=== PATIENT | male | born 1930 | race Caucasian/White ===

== ENCOUNTER 2019-07-15 06:50 | Inpatient (IN) | payer MEDICARE ==
[2019-07-13 13:53] LABS: BASOPHILS # (AUTO) 0.1 (0.0-0.1); BASOPHILS % 0.5 % (0.0-1.0); EOSINOPHILS # (AUTO) 0.3 (0.0-0.4); EOSINOPHILS % 3.2 % (0.0-6.0); HEMATOCRIT 44.4 % (38.2-49.6); HEMOGLOBIN 15.2 g/dL (14.0-18.0); LYMPHOCYTES # (AUTO) 2.3 (1.0-3.2); LYMPHOCYTES % 23.8 % (18.0-39.1); MEAN CORPUSCULAR HEMOGLOBIN 30.5 pg (28-32); MEAN CORPUSCULAR HGB CONC 34.2 g/dL (31-35); MEAN CORPUSCULAR VOLUME 89.2 fL (81-99); MONOCYTES # (AUTO) 0.6 (0.2-0.8); MONOCYTES % 6.2 % (4.4-11.3); NEUTROPHILS # (AUTO) 6.4 (2.1-6.9); NEUTROPHILS % 65.9 % (38.7-80.0); PLATELET COUNT 159 x10e3/uL (140-360); RED BLOOD COUNT 4.98 x10e6/uL (4.3-5.7); RED CELL DISTRIBUTION WIDTH 13.3 % (11.7-14.4)
--- NOTE | 2019-07-13 14:00 | Diagnostic Imaging Report ---
Chest, PA and lateral. History: Preoperative evaluation for prostate surgery. Comparison: None available. Discussion: The cardiomediastinal silhouette and pulmonary vasculature are within normal limits. The lungs are clear without evidence of consolidation or effusion. There are no acute osseous abnormalities. IMPRESSION: No radiographic evidence of acute cardiopulmonary abnormality. Signed by: Kedar Sears MD on 07/13/2019 1:57 PM
[2019-07-13 14:11] LABS: ANION GAP 12.4 mmol/L (8-16); BLOOD UREA NITROGEN 12 mg/dL (7-26); BUN/CREATININE RATIO 14 (6-25); CALCIUM 9.2 mg/dL (8.4-10.2); CARBON DIOXIDE 27 mmol/L (22-29); CHLORIDE 105 mmol/L (98-107); CREATININE, SERUM 0.88 mg/dL (0.72-1.25); EST GLOMERULAR FILTRATION RATE > 60 ML/MIN (60-); GLUCOSE 84 mg/dL (74-118); POTASSIUM 4.4 mmol/L (3.5-5.1); SODIUM 140 mmol/L (136-145)
[~2019-07-15] VITALS: Ht 167.6 cm; Wt 74.8 kg
[2019-07-15] MEDS: D5.45%NS/KCL 20MEQ 1,000 ML IV SCH ×2 (03:05→14:30)
[~2019-07-15 06:50] MED LIST: ARICEPT5 MG PO; BYSTOLIC10 MG PO; FLOMAX0.4 MG PO
--- OUTSIDE RECORDS SUMMARY | 2019-07-15 06:52 | XMS REPORT ---
Author Author [facility] Address Unknown Phone Unavailable Care Team Providers Care Sampler Tester Name Role Phone DENI GARNER Unavailable Unavailable Problems This patient has no known problems. Allergies, Adverse Reactions, Alerts This patient has no known allergies or adverse reactions. Medications This patient has no known medications. Results Test Description Test Time Test Comments Text Results Atomic Results Result Comments CHEST 2 VIEWS 2019-07-13 13:57:00 [facility] [address] [address] Patient Name: JUAN PABLO JONES MR #: [id number] : 1930 Age/Sex: 88/M Req #: [id number] [facility] Physician: Ordered by: DENI GARNER MD Report #: [id number] Location: OR Room/Bed: Procedure: [id number] DX/CHEST 2 VIEWS Exam Date: 07/13/19 Exam Time: 1350 REPORT STATUS: Signed Chest, PA and lateral. History: Preoperative evaluation for prostate surgery. Comparison: None available. Discussion: The cardiomediastinal silhouette and pulmonary vasculature are within normal limits. The lungs are clear without evidence of consolidation or effusion. There are no acute osseous abnormalities. IMPRESSION: No radiographic evidence of acute cardiopulmonary abnormality. Signed by: Kedar Richardson MD on 07/13/2019 1:57 PM Dictated By: KEDAR RIHCARDSON MD [id number] Transcribed By: KALLIE on 07/13/19 135 COPY TO: DENI GARNER MD
[2019-07-15] MEDS ORDERED: SODIUM CHLORIDE 0.9% 1000ML 1,000 ML ONE (08:16)
[2019-07-15] MEDS ORDERED: GENTAMICIN 80MG/NS 100 ML 200 ML IV ONE (08:16)
[2019-07-15] MEDS ORDERED: PIPER-TAZ 3.375 GM 50 ML ONE (08:16)
[2019-07-15] MEDS ORDERED: IOPAMIDOL 610MG/1ML 300 MG/ML VIAL IV ONE (08:43)
[2019-07-15] MEDS ORDERED: B&O 60MG R/S 60 MG SUPP PR ONE (08:43)
[2019-07-15] MEDS ORDERED: B&O 60MG R/S 60 MG SUPP PR PRN (11:00)
[2019-07-15] MEDS ORDERED: ACETAMINOPHEN/CODEINE 300MG - 30MG TAB PO PRN (11:00)
[2019-07-15] MEDS ORDERED: DIPHENHYDRAMINE HCL 25 MG CAP PO PRN (11:00)
[2019-07-15] MEDS ORDERED: ONDANSETRON HCL INJ 2MG/ML 2ML 2 MG/ML VIAL IV PRN (11:00)
[2019-07-15 11:44] LABS: BASOPHILS % 0.4 % (0.0-1.0); EOSINOPHILS # (AUTO) 0.1 (0.0-0.4); EOSINOPHILS % 1.2 % (0.0-6.0); HEMATOCRIT 43.3 % (38.2-49.6); HEMOGLOBIN 14.9 g/dL (14.0-18.0); LYMPHOCYTES # (AUTO) 1.2 (1.0-3.2); LYMPHOCYTES % 12.6 % (18.0-39.1); MEAN CORPUSCULAR HEMOGLOBIN 30.5 pg (28-32); MEAN CORPUSCULAR HGB CONC 34.4 g/dL (31-35); MEAN CORPUSCULAR VOLUME 88.7 fL (81-99); MONOCYTES # (AUTO) 0.2 (0.2-0.8); NEUTROPHILS # (AUTO) 7.7 (2.1-6.9); NEUTROPHILS % 83.5 % (38.7-80.0); PLATELET COUNT 132 x10e3/uL (140-360); RED BLOOD COUNT 4.88 x10e6/uL (4.3-5.7); RED CELL DISTRIBUTION WIDTH 13.3 % (11.7-14.4)
[2019-07-15 11:58] LABS: BLOOD UREA NITROGEN 10 mg/dL (7-26); BUN/CREATININE RATIO 12 (6-25); CALCIUM 7.9 mg/dL (8.4-10.2); CARBON DIOXIDE 23 mmol/L (22-29); CHLORIDE 110 mmol/L (98-107); CREATININE, SERUM 0.82 mg/dL (0.72-1.25); EST GLOMERULAR FILTRATION RATE > 60 ML/MIN (60-); GLUCOSE 129 mg/dL (74-118); SODIUM 139 mmol/L (136-145)
[2019-07-15 14:15] VITALS: BP 156/70
[2019-07-15 14:16] VITALS: BP 156/70
[2019-07-15 14:17] VITALS: BP 156/70
[2019-07-15] MEDS: PHENAZOPYRIDINE HCL 100 MG TAB PO SCH ×2 (14:20→18:45)
[2019-07-15] MEDS ORDERED: ONDANSETRON HCL INJ 2MG/ML 2ML 2 MG/ML VIAL ONE (14:37)
[2019-07-15] MEDS ORDERED: DEXAMETHASONE SOD PHOS INJ 4 MG/ML VIAL ONE (14:37)
[2019-07-15] MEDS ORDERED: ACETAMINOPHEN 1000 MG/100 ML IV ONE (14:37)
[2019-07-15] MEDS ORDERED: LIDOCAINE HCL 2% LOCAL INJ 5 ML SDV VIAL INJ ONE (14:37)
[2019-07-15] MEDS ORDERED: PROPOFOL IV EMULSION 10 MG/ML 20 ML VIAL ONE (14:37)
[2019-07-15] MEDS ORDERED: SEVOFLURANE INHAL SOLN 250 ML PEN BTL ONE (14:37)
[2019-07-15] MEDS ORDERED: FUROSEMIDE INJ 10 MG/ML 4 ML VIAL ONE (14:37)
[2019-07-15] MEDS ORDERED: ACETAMINOPHEN 1000 MG/100 ML IV PRN (15:00)
[2019-07-15] MEDS: PIPERACILLIN/TAZO 2.25 GM 50 ML IV SCH ×2 (15:15→22:01)
[2019-07-15] MEDS ORDERED: FENTANYL CITRATE/PF 100MCG/2 ML INJ ONE (15:33)
[2019-07-15 15:42] VITALS: BP 110/53
[2019-07-15] MEDS: DOCUSATE SODIUM 100 MG CAP PO SCH (18:44)
--- NOTE | 2019-07-15 19:00 | NUR ---
Received bedside report from day nurse. Patient awake and resting in bed, no s/s of distress or c/o pain at this time. All safety measures in place. Family at bedside. Will continue to monitor.
--- NOTE | 2019-07-15 19:04 | NUR ---
REPORT GIVEN TO JOSE Caruso RN. PATIENT AAOX3. ACYANOTIC. NO DISTRESS NOTED. FAMILY PRESENT AT THE BEDSIDE.
[2019-07-15 20:00] VITALS: BP 131/63
[2019-07-15] MEDS: DONEPEZIL HCL 5 MG TAB PO SCH (22:01)
[2019-07-15] MEDS: TAMSULOSIN HCL 0.4 MG CAP PO SCH (22:01)
[2019-07-15] MEDS: NEBIVOLOL 10 MG TAB PO SCH (22:01)
[2019-07-15 22:21] VITALS: BP 131/63
[2019-07-16] VITALS (8 sets, daily range): BP systolic 112–160; BP diastolic 53–67
[2019-07-16] MEDS: D5.45%NS/KCL 20MEQ 1,000 ML IV SCH ×3 (03:05→21:05)
[2019-07-16] MEDS: PIPERACILLIN/TAZO 2.25 GM 50 ML IV SCH ×3 (05:32→21:09)
[2019-07-16 06:08] LABS: BASOPHILS % 0.2 % (0.0-1.0); EOSINOPHILS % 0.1 % (0.0-6.0); HEMATOCRIT 32.3 % (38.2-49.6); HEMOGLOBIN 11.6 g/dL (14.0-18.0); LYMPHOCYTES # (AUTO) 2.4 (1.0-3.2); LYMPHOCYTES % 15.8 % (18.0-39.1); MEAN CORPUSCULAR HEMOGLOBIN 32.2 pg (28-32); MEAN CORPUSCULAR HGB CONC 35.9 g/dL (31-35); MEAN CORPUSCULAR VOLUME 89.7 fL (81-99); MONOCYTES # (AUTO) 1.3 (0.2-0.8); MONOCYTES % 8.7 % (4.4-11.3); NEUTROPHILS # (AUTO) 11.4 (2.1-6.9); NEUTROPHILS % 74.7 % (38.7-80.0); PLATELET COUNT 141 x10e3/uL (140-360); RED CELL DISTRIBUTION WIDTH 13.3 % (11.7-14.4)
[2019-07-16 06:22] LABS: BLOOD UREA NITROGEN 16 mg/dL (7-26); BUN/CREATININE RATIO 14 (6-25); CALCIUM 7.7 mg/dL (8.4-10.2); CARBON DIOXIDE 23 mmol/L (22-29); CHLORIDE 108 mmol/L (98-107); CREATININE, SERUM 1.14 mg/dL (0.72-1.25); EST GLOMERULAR FILTRATION RATE > 60 ML/MIN (60-); GLUCOSE 133 mg/dL (74-118); SODIUM 137 mmol/L (136-145)
--- NOTE | 2019-07-16 07:15 | NUR ---
Received patient this morning, rounds completed, no distress, Albright cath in place, continues CBI, will monitor.
--- NOTE | 2019-07-16 07:25 | NUR ---
Bedside report given to day nurse. Patient awake and resting in bed, no s/s of distress or c/o pain at this time. All safety measures in place. Family at bedside.
[2019-07-16] MEDS: DOCUSATE SODIUM 100 MG CAP PO SCH ×2 (08:44→16:59)
[2019-07-16] MEDS: PHENAZOPYRIDINE HCL 100 MG TAB PO SCH ×3 (08:44→18:36)
--- NOTE | 2019-07-16 09:24 | NUR ---
Patient OOB and assisted to bathroom, ambulated in room, irrigated Albright and draining adequately, CBI in place, rounds by Dr. Burnette, will monitor.
--- NOTE | 2019-07-16 18:56 | NUR ---
WALKING ROUNDS PERFORMED, RECEIVED PT SITTING IN RECLINER, AAOX3, RR EVEN AND NON-LABORED, ON ROOM AIR. [place] TO BEDSIDE BAG WITH CBI. NO S/SX OF DISTRESS NOTED. LEFT PT LAYING SEMI FOWLERS IN BED, BED IN LOW LOCKED POSITION, SIDE RAILS UPX2, CALL LIGHT AND PHONE WITHIN REACH. FAMILY AT BEDSIDE.
[2019-07-16] MEDS: DONEPEZIL HCL 5 MG TAB PO SCH (21:08)
[2019-07-16] MEDS: NEBIVOLOL 10 MG TAB PO SCH (21:09)
[2019-07-16] MEDS: TAMSULOSIN HCL 0.4 MG CAP PO SCH (21:09)
[2019-07-17] VITALS (8 sets, daily range): BP systolic 119–184; BP diastolic 65–74
[2019-07-17] MEDS: PIPERACILLIN/TAZO 2.25 GM 50 ML IV SCH ×3 (05:11→21:10)
[2019-07-17 06:12] LABS: BASOPHILS % 0.3 % (0.0-1.0); EOSINOPHILS # (AUTO) 0.2 (0.0-0.4); EOSINOPHILS % 1.4 % (0.0-6.0); HEMATOCRIT 29.8 % (38.2-49.6); LYMPHOCYTES # (AUTO) 2.2 (1.0-3.2); LYMPHOCYTES % 19.2 % (18.0-39.1); MEAN CORPUSCULAR HEMOGLOBIN 30.8 pg (28-32); MEAN CORPUSCULAR HGB CONC 33.6 g/dL (31-35); MEAN CORPUSCULAR VOLUME 91.7 fL (81-99); MONOCYTES % 8.6 % (4.4-11.3); NEUTROPHILS # (AUTO) 8.1 (2.1-6.9); PLATELET COUNT 128 x10e3/uL (140-360); RED BLOOD COUNT 3.25 x10e6/uL (4.3-5.7); RED CELL DISTRIBUTION WIDTH 13.8 % (11.7-14.4)
[2019-07-17 06:34] LABS: ALANINE AMINOTRANSFERASE 96 IU/L (0-55); ALBUMIN 2.8 g/dL (3.5-5.0); ALKALINE PHOSPHATASE 89 IU/L (40-150); ANION GAP 7.1 mmol/L (8-16); BLOOD UREA NITROGEN 10 mg/dL (7-26); BUN/CREATININE RATIO 11 (6-25); CALCIUM 7.9 mg/dL (8.4-10.2); CARBON DIOXIDE 26 mmol/L (22-29); CHLORIDE 109 mmol/L (98-107); EST GLOMERULAR FILTRATION RATE > 60 ML/MIN (60-); POTASSIUM 4.1 mmol/L (3.5-5.1); SODIUM 138 mmol/L (136-145)
[2019-07-17 06:39] LABS: GLUCOSE 113 mg/dL (74-118)
--- NOTE | 2019-07-17 08:08 | NUR ---
IMM EXPLAINED TO PT, SIGNED BY PT AND PLACED IN CHART COPY OF IMM TO PT IN FOLDER
[2019-07-17] MEDS: DOCUSATE SODIUM 100 MG CAP PO SCH ×2 (08:29→17:21)
[2019-07-17] MEDS: PHENAZOPYRIDINE HCL 100 MG TAB PO SCH ×3 (08:29→17:21)
[2019-07-17] MEDS: D5.45%NS/KCL 20MEQ 1,000 ML IV SCH (08:30)
[2019-07-17] MEDS ORDERED: SODIUM CHLORIDE 0.9% 1000ML 1,000 ML ONE (13:30)
[2019-07-17] MEDS: DONEPEZIL HCL 5 MG TAB PO SCH (20:48)
[2019-07-17] MEDS: TAMSULOSIN HCL 0.4 MG CAP PO SCH (20:49)
[2019-07-17] MEDS: NEBIVOLOL 10 MG TAB PO SCH (20:49)
[2019-07-18] VITALS (8 sets, daily range): BP systolic 134–188; BP diastolic 66–86
[2019-07-18] MEDS: D5.45%NS/KCL 20MEQ 1,000 ML IV SCH ×3 (01:45→17:17)
[2019-07-18] MEDS: PIPERACILLIN/TAZO 2.25 GM 50 ML IV SCH ×3 (05:49→21:53)
[2019-07-18 05:56] LABS: BASOPHILS # (AUTO) 0.1 (0.0-0.1); BASOPHILS % 0.5 % (0.0-1.0); EOSINOPHILS # (AUTO) 0.2 (0.0-0.4); HEMATOCRIT 29.7 % (38.2-49.6); HEMOGLOBIN 9.7 g/dL (14.0-18.0); LYMPHOCYTES # (AUTO) 2.2 (1.0-3.2); LYMPHOCYTES % 19.4 % (18.0-39.1); MEAN CORPUSCULAR HGB CONC 32.7 g/dL (31-35); MONOCYTES # (AUTO) 0.9 (0.2-0.8); MONOCYTES % 8.3 % (4.4-11.3); NEUTROPHILS # (AUTO) 7.8 (2.1-6.9); NEUTROPHILS % 69.4 % (38.7-80.0); PLATELET COUNT 129 x10e3/uL (140-360); RED BLOOD COUNT 3.23 x10e6/uL (4.3-5.7); RED CELL DISTRIBUTION WIDTH 13.4 % (11.7-14.4)
[2019-07-18 06:25] LABS: ANION GAP 6.2 mmol/L (8-16); BLOOD UREA NITROGEN 6 mg/dL (7-26); BUN/CREATININE RATIO 7 (6-25); CALCIUM 8.3 mg/dL (8.4-10.2); CARBON DIOXIDE 28 mmol/L (22-29); CHLORIDE 108 mmol/L (98-107); CREATININE, SERUM 0.82 mg/dL (0.72-1.25); EST GLOMERULAR FILTRATION RATE > 60 ML/MIN (60-); GLUCOSE 118 mg/dL (74-118); POTASSIUM 4.2 mmol/L (3.5-5.1); SODIUM 138 mmol/L (136-145)
[2019-07-18] MEDS: PHENAZOPYRIDINE HCL 100 MG TAB PO SCH ×3 (10:30→18:03)
[2019-07-18] MEDS: DOCUSATE SODIUM 100 MG CAP PO SCH ×2 (10:30→17:16)
[2019-07-18] MEDS: TAMSULOSIN HCL 0.4 MG CAP PO SCH (20:27)
[2019-07-18] MEDS: NEBIVOLOL 10 MG TAB PO SCH (20:27)
[2019-07-18] MEDS: DONEPEZIL HCL 5 MG TAB PO SCH (20:27)
[2019-07-19] VITALS (8 sets, daily range): BP systolic 108–187; BP diastolic 52–81
--- NOTE | 2019-07-19 03:14 | Progress Note ---
DATE: SUBJECTIVE: The patient did well throughout the day and overnight. He has no new complaints. OBJECTIVE: VITAL SIGNS: Temperature 98.9, pulse 77, blood pressure 142/66, sats 97%. GENERAL: No apparent distress, lying in bed. CARDIOVASCULAR: Regular rate and rhythm. LUNGS: Clear to auscultation. ABDOMEN: Good bowel sounds. Soft, nontender. EXTREMITIES: No clubbing or cyanosis. NEUROLOGIC: Nonfocal. ASSESSMENT AND PLAN: 1. Hematuria. Continue with current care per Urology. 2. Status post transurethral resection of the prostate for benign prostatic hyperplasia. Continue with current care per Urology. 3. Anemia. Continue to monitor. 4. Dementia. Continue with his medication. 5. Hypertension. Continue with his medication. Please see hospital chart for full details. MD TONEY Holguin/SILVIANO /[id number]
[2019-07-19] MEDS: D5.45%NS/KCL 20MEQ 1,000 ML IV SCH ×2 (03:15→13:00)
[2019-07-19] MEDS: PIPERACILLIN/TAZO 2.25 GM 50 ML IV SCH ×3 (06:01→21:03)
[2019-07-19 06:23] LABS: BASOPHILS % 0.4 % (0.0-1.0); EOSINOPHILS # (AUTO) 0.3 (0.0-0.4); EOSINOPHILS % 2.8 % (0.0-6.0); HEMATOCRIT 30.4 % (38.2-49.6); LYMPHOCYTES # (AUTO) 2.5 (1.0-3.2); LYMPHOCYTES % 23.1 % (18.0-39.1); MEAN CORPUSCULAR HEMOGLOBIN 30.2 pg (28-32); MEAN CORPUSCULAR HGB CONC 32.9 g/dL (31-35); MEAN CORPUSCULAR VOLUME 91.8 fL (81-99); MONOCYTES # (AUTO) 0.8 (0.2-0.8); MONOCYTES % 7.6 % (4.4-11.3); NEUTROPHILS # (AUTO) 7.1 (2.1-6.9); NEUTROPHILS % 65.5 % (38.7-80.0); PLATELET COUNT 147 x10e3/uL (140-360); RED BLOOD COUNT 3.31 x10e6/uL (4.3-5.7); RED CELL DISTRIBUTION WIDTH 13.3 % (11.7-14.4)
[2019-07-19 06:45] LABS: ANION GAP 10.3 mmol/L (8-16); BLOOD UREA NITROGEN 6 mg/dL (7-26); BUN/CREATININE RATIO 7 (6-25); CALCIUM 8.4 mg/dL (8.4-10.2); CARBON DIOXIDE 25 mmol/L (22-29); CHLORIDE 108 mmol/L (98-107); CREATININE, SERUM 0.84 mg/dL (0.72-1.25); EST GLOMERULAR FILTRATION RATE > 60 ML/MIN (60-); GLUCOSE 110 mg/dL (74-118); POTASSIUM 4.3 mmol/L (3.5-5.1); SODIUM 139 mmol/L (136-145)
[2019-07-19] MEDS: DOCUSATE SODIUM 100 MG CAP PO SCH ×2 (08:42→17:44)
[2019-07-19] MEDS: PHENAZOPYRIDINE HCL 100 MG TAB PO SCH ×3 (08:42→17:44)
--- NOTE | 2019-07-19 09:41 | NUR ---
Educated on IMM. Verbalized understanding and signed. Copy to patient and original placed on chart.
--- NOTE | 2019-07-19 11:46 | NUR ---
Albright discontinued as ordered. Tolerated well. Due to void
--- NOTE | 2019-07-19 12:30 | NUR ---
Patient voided without discomfort. Bloody tinged urine noted. Will continue to monitor.
--- NOTE | 2019-07-19 16:30 | NUR ---
Post void bladder scan done. 25ml noted. Denies discomfort
[2019-07-19] MEDS ORDERED: CLONIDINE HCL 0.1 MG TAB PO PRN (17:30)
--- NOTE | 2019-07-19 17:43 | NUR ---
O aware serial urine not clear. Urine juarez red
--- NOTE | 2019-07-19 19:21 | NUR ---
Report given to oncoming nurse of patient's status. No s/s of acute distress noted. Side rails upx2, call light within reach.
[2019-07-19] MEDS: TAMSULOSIN HCL 0.4 MG CAP PO SCH (21:03)
[2019-07-19] MEDS: DONEPEZIL HCL 5 MG TAB PO SCH (21:03)
[2019-07-19] MEDS: NEBIVOLOL 10 MG TAB PO SCH (21:03)
[2019-07-20] MEDS: D5.45%NS/KCL 20MEQ 1,000 ML IV SCH ×2 (00:49→01:17)
[2019-07-20 01:08] VITALS: BP 169/73
[2019-07-20] MEDS: PIPERACILLIN/TAZO 2.25 GM 50 ML IV SCH (05:24)
[2019-07-20 05:58] VITALS: BP 159/67
[2019-07-20 07:48] VITALS: BP 178/70
[2019-07-20 08:30] VITALS: BP 178/70
--- NOTE | 2019-07-20 08:30 | NUR ---
MD GARNER INTO SEE PT, DISCUSSED POC
--- NOTE | 2019-07-20 09:30 | NUR ---
PT RAISING VOICE, STATES "DR GARNER DISCHARGED ME AT 0800", PT EDUCATED THAT MD QUIROGA IS ATTENDING HERE AND NURSE MUST GET AN ORDER FROM HIM, PT STATES "DR QUIROGA HAS NO SAY SO IF DR GARNER DISCHARGED ME", AGAIN PT EDUCATED THAT NURSE HAS ALREADY CALLED DR QUIROGA AND AWAITING CALL BACK FOR DISCHARGE ORDERS AND THAT NURSE CANNOT SEND PT HOME WITHOUT GETTING ANY ORDER FROM ATTENDING, PT SHOOK HEAD SIDE TO SIDE
[2019-07-20] MEDS: PHENAZOPYRIDINE HCL 100 MG TAB PO SCH (09:50)
[2019-07-20] MEDS: DOCUSATE SODIUM 100 MG CAP PO SCH (09:50)
[2019-07-20] MEDS ORDERED: LEVAQUIN500 MG PO (09:53)
[2019-07-20] MEDS ORDERED: TYLENOL WITH C1 EACH PO (09:54)
--- NOTE | 2019-07-20 10:10 | NUR ---
SPOKE WITH MD QUIROGA, DISCHARGE ORDERS NOTED, DISCHARGE INSTRUCTIONS REVIEWED WITH PT, PT VERBALIZED UNDERSTANDING, PT INSIST ON SITTING IN LOBBY UNTIL DAUGHTER GET HERE, PT WHEELED OFF UNIT VIA WC FOR DISCHARGE,L NO CHANGE IN CONDITION
--- NOTE | 2019-07-21 05:19 | Discharge Summary ---
DISCHARGE DIAGNOSES: 1. Prostatism, status post transurethral resection of the prostate. 2. Benign prostatic hypertrophy. 3. Hypertension. 4. Dementia. HISTORY OF PRESENT ILLNESS AND HOSPITAL COURSE: See hospital chart for full details. The patient is a gentleman, who presents with prostatism with severe BPH, status post TURP with Dr. Burnette without complications. The patient was monitored in the hospital. Once his hematuria improved, his Albright discontinue once he voided well. He was able to be cleared by Urology and once he was cleared, he was able to be discharged home in good condition. He will follow up in 1 to 2 weeks with me as well as with Dr. Burnette. Please see hospital chart for full details. MD TONEY Holguin/SILVIANO /[id number]
--- NOTE | 2019-08-05 22:57 | Operative Report ---
DATE OF PROCEDURE: 07/15/2019 SURGEON: Kp Burnette MD PREOPERATIVE DIAGNOSES: 1. Elevated PSA. 2. Obstructive BPH. 3. Urinary tract infections. POSTOPERATIVE DIAGNOSES: 1. Elevated PSA. 2. Obstructive BPH. 3. Urinary tract infections. 4. Right base prostate nodule. 5. Bilateral ureterectasis. OPERATIONS PERFORMED: 1. Transrectal sonography interpretation, no radiologist present. 2. Ultrasonographic guidance for needle biopsies interpretation, no radiologist present. 3. Transrectal needle biopsy of the prostate (separate procedure performed for the elevated PSA). 4. Cystourethroscopy with bilateral ureteral catheterization and retrograde ureteropyelography (separate procedure performed for the urinary tract infections). 5. Interpretation of retrograde ureteropyelography. 6. Supervision of fluoroscopy, no radiologist present. 7. Cystourethroscopy with transurethral resection of the prostate utilizing the PlasmaBand electrode. ANESTHESIA: General. COMPLICATIONS: None. CLINICAL SUMMARY: Silver Horton is an 88-year-old man with the above preoperative diagnoses. He is brought for the above procedures. He is aware of the risks of bleeding, infection, injury to adjacent structures, need for additional procedures and elected to proceed. OPERATIVE PROCEDURE IN DETAIL: Informed consent was verified. Silver Horton was properly identified, taken to the operating room, and placed on the cystoscopy table in supine position. Anesthesia was uneventfully begun. The patient was then carefully gently repositioned in dorsal lithotomy position with all pressure points well padded. A transrectal sonography was performed. Interpretation of transrectal sonography. Real-time ultrasonography was performed transrectally. The patient's prostate volume was measured at 112 mL. There were diffuse calcifications noted and these were most pronounced at the junction between the transition zone and the peripheral zone. The prostatic capsule was smooth. The seminal vesicles were unremarkable. With ultrasonographic guidance, needle biopsies of the prostate were taken. Multiple biopsies were taken at each of 6 locations. These were sent in 6 containers, labeled by differentiation of right versus left and base versus mid versus apex. Care was taken to include biopsies of the actual nodule at the right base. The patient's genitalia were prepared and draped in usual sterile fashion. The cystoscope sheath with visual obturator in place was atraumatically inserted into the patient's urethra, was guided unremarkable urethra through the normal sphincteric region through the patient's prostate bed, which was significant for trilobar prostatic hypertrophy with a very long prostatic urethra, kissing lateral lobes and a prominent median lobe. We entered the patient's bladder where there were diffuse diverticula present. The patient had extremely heavy trabeculations. No suspicious mucosal lesions were identified. There were no obvious mucosal lesions. An 8-Malagasy catheter was used to cannulate each ureter and retrograde ureteropyelograms were performed. Interpretation of retrograde ureteropyelography contrast was instilled in retrograde fashion bilaterally. There were no tumors, no stones, no diverticula. Unobstructed drainage was observed fluoroscopically. Nevertheless, there was ureterectasis to the level of the patient's bladder wall, thus thickened bladder wall was causing partial obstruction of both ureters. The cystoscope was withdrawn. The resectoscope was atraumatically placed with the obturator. We then utilized the PlasmaBand electrode to resect and eliminate the median lobe. We then worked on both lateral lobes from the bladder neck the verumontanum and down the surgical capsule. Pinpoint electrocautery was utilized to achieve hemostasis. We evacuated all chips and this was verified endoscopically. The resectoscope was then withdrawn. A continuous irrigation Albright catheter was placed. It was irrigated to and fro to ensure it worked properly. It was placed on continuous irrigation and with clear efflux. A belladonna and opium suppository were placed. The patient was uneventfully reversed from anesthesia and taken to recovery room in stable condition. There were no complications to the procedure. The patient tolerated the procedure well. Plans will be to proceed with routine postoperative care and of course ongoing urological followup. We hope that this procedure will prevent upper tract deterioration as well as further bladder deterioration and allow the patient better quality of life. Kp Burnette MD [place]/MODL /[id number] cc: Irvin Srivastava MD
== END 2019-07-20 10:20 | disposition home or self-care (01) | DRG 713 ==
LOC: OR 06:50 → PACU V 10:51 → MED/SURG 13:57
PROVIDERS: ADMIT Internal Medicine; ATTEND Internal Medicine
PROC: BT141ZZ Fluoroscopy of Kidneys, Ureters and Bladder using Low Osmolar Contrast (ICD-10-PCS; 2019-07-15)
PROC: 0VB07ZX Excision of Prostate, Via Natural or Artificial Opening, Diagnostic (ICD-10-PCS; principal; 2019-07-15 09:00)
PROC: 0VB08ZZ Excision of Prostate, Via Natural or Artificial Opening Endoscopic (ICD-10-PCS; 2019-07-15 09:00)
PROC: 0T788ZZ Dilation of Bilateral Ureters, Via Natural or Artificial Opening Endoscopic (ICD-10-PCS; 2019-07-15 09:00)
DX: N40.0 Benign prostatic hyperplasia without lower urinary tract symptoms (principal); N39.0 Urinary tract infection, site not specified; N13.8 Other obstructive and reflux uropathy; N13.4 Hydroureter; F03.90 Unspecified dementia, unspecified severity, without behavioral disturbance, psychotic disturbance, mood disturbance, and anxiety; I10 Essential (primary) hypertension; N40.1 Benign prostatic hyperplasia with lower urinary tract symptoms; R97.20 Elevated prostate specific antigen [PSA]
CPT/HCPCS: 36415; 51700; 71046; 74420; 76872; 76998; 80048; 80053; 83735; 85025; 88305; 88342; 93005; C1758; J1100; J1580; J1940; J2001; J2405; J2543; J3010; J7030